=== PATIENT | female | born 1935 | race African-American/Black ===

== ENCOUNTER 2016-11-05 16:53 | Emergency (ER) | payer OTHER ==
[~2016-11-05] VITALS: Ht 162.6 cm; Wt 90.0 kg
[~2016-11-05 16:53] MED LIST: ASPI-864 PO; CARV12.545 PO; DIAZ10TA4 PO; DIPH25CA83 PO; FURO-151 PO; GABA-290 PO; LINA5TAB PO; Nifedipine PO; OMEP20CA10 PO; P20 PO
[2016-11-05] MEDS ORDERED: SODIUM CHLORIDE 0.9% 1,000 ML IV ONE (17:11)
[2016-11-05] MEDS ORDERED: METRONIDAZOLE 500MG TABLET PO ONE (17:15)
[2016-11-05 17:42] LABS: BASOPHILS % 0.8 % (0.0-2.0); HEMATOCRIT. 34.4 % (36.0-48.0); HEMOGLOBIN. 11.1 g/dL (12.0-16.0); LYMPHOCYTES % 22.1 % (20.0-50.0); MEAN CORPUSCULAR HEMOGLOBIN 26.2 pg (28.0-32.0); MEAN CORPUSCULAR HGB CONC 32.2 g/dL (31.0-37.0); MEAN CORPUSCULAR VOLUME 81.1 fL (81.0-99.0); MEAN PLATELET VOLUME 8.1 fl (7.4-10.4); MONOCYTES % 9.9 % (2.0-8.0); NEUTROPHILS % 66.2 % (40.0-76.0); PLATELET 258 x1000/uL (130-400); RED BLOOD CELL COUNT 4.25 mill/uL (4.2-5.4); RED CELL DISTRIBUTION WIDTH 15.5 % (11.6-14.6); WHITE BLOOD COUNT 7.9 x1000/uL (4.5-11.0)
[2016-11-05 17:44] LABS: CHLORIDE 103 mEq/L (98-107)
[2016-11-05 17:47] LABS: ALBUMIN 3.3 g/dL (3.4-5.0); ANION GAP 13; CALCIUM 8.7 mg/dL (8.5-10.1); CARBON DIOXIDE 26 mEq/L (21-32); INDEX HEMOLYSI 1 (1-3); INDEX ICTERIC 1 (1-4); INDEX LIPEMIC 1 (1-3)
[2016-11-05 17:49] LABS: UREA NITROGEN BLOOD 7 mg/dL (7-21)
[2016-11-05 17:53] LABS: ALANINE AMINOTRANSFERASE 34 IU/L (13-61); eGFR > 60 mL/min (>60)
[2016-11-05] MEDS ORDERED: POTASSIUM CHLORIDE 20MEQ TABLET SR PO ONE (18:30)
[2016-11-05] MEDS ORDERED: FAMOTIDINE 20MG TABLET PO ONE (18:45)
[2016-11-05] MEDS ORDERED: IBUPROFEN 400MG TABLET PO ONE (18:45)
[2016-11-05 19:31] LABS: CLARITY URINE CLEAR (CLEAR); COLOR URINE YELLOW (YELLOW); GLUCOSE URINE NEGATIVE (NEGATIVE); KETONES URINE NEGATIVE (NEGATIVE); LEUKOCYTE ESTERASE URINE TRACE (NEGATIVE); NITRITE URINE NEGATIVE (NEGATIVE); OCCULT BLOOD URINE NEGATIVE (NEGATIVE); PROTEIN URINE NEGATIVE (NEGATIVE); SPECIFIC GRAVITY URINE 1.005 (1.005-1.030); UROBILINOGEN URINE 0.2 E.U./dL (0.2-1.0)
[2016-11-05 19:53] LABS: SQUAMOUS EPITHELIAL CELL URINE 1+ /lpf (RARE/1+)
[2016-11-05 19:54] LABS: BACTERIA URINE TRACE; RBC URINE 0-2 /hpf (0-2)
[2016-11-05 20:00] VITALS: BP 154/85
== END 2016-11-05 20:15 | disposition home or self-care (01) ==
LOC: ER 16:54
DX: N39.0 Urinary tract infection, site not specified (principal); R19.7 Diarrhea, unspecified; E87.6 Hypokalemia; I11.0 Hypertensive heart disease with heart failure; I50.9 Heart failure, unspecified; E11.9 Type 2 diabetes mellitus without complications; Z88.5 Allergy status to narcotic agent; Z88.8 Allergy status to other drugs, medicaments and biological substances; Z79.899 Other long term (current) drug therapy
CPT/HCPCS: 36415; 80053; 81001; 85025; 87086; 96360; 96361; 99285; J7030

== ENCOUNTER 2016-11-06 10:15 | Emergency (ER) | payer OTHER, MEDICAID ==
[~2016-11-06] VITALS: Ht 162.6 cm; Wt 80.0 kg
[2016-11-06] MEDS ORDERED: KETOROLAC 60MG/2ML VIAL IM ONE (11:45)
[2016-11-06 15:10] VITALS: BP 122/76
== END 2016-11-06 15:14 | disposition home or self-care (01) ==
LOC: ER 10:26
DX: R51 Headache (principal); I11.0 Hypertensive heart disease with heart failure; I50.9 Heart failure, unspecified; E11.9 Type 2 diabetes mellitus without complications; Z88.8 Allergy status to other drugs, medicaments and biological substances; Z88.5 Allergy status to narcotic agent; Z79.82 Long term (current) use of aspirin; Z79.899 Other long term (current) drug therapy
CPT/HCPCS: 96372; 99284; J1885

== ENCOUNTER 2016-11-11 03:33 | Emergency (ER) | payer OTHER, MEDICAID ==
[~2016-11-11] VITALS: Ht 160 cm; Wt 77.0 kg
[2016-11-11] MEDS ORDERED: ONDANSETRON 4MG ODT PO STA (04:03)
[2016-11-11] MEDS ORDERED: KETOROLAC 30MG/ML VIAL IV STA (04:03)
[2016-11-11] MEDS ORDERED: TETRACAINE 0.5% OPHTH DROPS 4ML OP ONE (04:15)
[2016-11-11 04:38] LABS: BASOPHILS % 0.6 % (0.0-2.0); EOSINOPHILS % 1.9 % (0.0-5.0); HEMATOCRIT. 32.9 % (36.0-48.0); HEMOGLOBIN. 10.7 g/dL (12.0-16.0); LYMPHOCYTES % 21.2 % (20.0-50.0); MEAN CORPUSCULAR HEMOGLOBIN 26.4 pg (28.0-32.0); MEAN CORPUSCULAR HGB CONC 32.7 g/dL (31.0-37.0); MEAN CORPUSCULAR VOLUME 80.8 fL (81.0-99.0); MEAN PLATELET VOLUME 8.1 fl (7.4-10.4); MONOCYTES % 12.2 % (2.0-8.0); NEUTROPHILS % 64.1 % (40.0-76.0); PLATELET 223 x1000/uL (130-400); RED BLOOD CELL COUNT 4.07 mill/uL (4.2-5.4); RED CELL DISTRIBUTION WIDTH 15.7 % (11.6-14.6); WHITE BLOOD COUNT 4.3 x1000/uL (4.5-11.0)
[2016-11-11 04:42] LABS: ALANINE AMINOTRANSFERASE 28 IU/L (13-61); ALBUMIN 3.2 g/dL (3.4-5.0); ANION GAP 13; CALCIUM 8.6 mg/dL (8.5-10.1); CARBON DIOXIDE 27 mEq/L (21-32); CHLORIDE 105 mEq/L (98-107); INDEX HEMOLYSI 1 (1-3); INDEX ICTERIC 1 (1-4); INDEX LIPEMIC 1 (1-3); UREA NITROGEN BLOOD 8 mg/dL (7-21); eGFR > 60 mL/min (>60)
[2016-11-11 05:00] LABS: INR 3.1; PROTHROMBIN TIME 32.8 sec
[2016-11-11 06:08] VITALS: BP 143/72
== END 2016-11-11 07:19 | disposition home or self-care (01) ==
LOC: ER 03:34
DX: R51 Headache (principal); E11.9 Type 2 diabetes mellitus without complications; R42 Dizziness and giddiness; I48.91 Unspecified atrial fibrillation; I11.0 Hypertensive heart disease with heart failure; I50.9 Heart failure, unspecified; J45.909 Unspecified asthma, uncomplicated; F41.9 Anxiety disorder, unspecified; R11.0 Nausea; Z88.5 Allergy status to narcotic agent
CPT/HCPCS: 36415; 70450; 80053; 85025; 85610; 85651; 96374; 99285; J1885; Q0162